=== PATIENT | female | born 2000 | race American Indian/Alaskan Native ===

== ENCOUNTER 2021-04-19 18:01 | Emergency (ER) | payer SELFPAY ==
[2021-04-19 18:53] VITALS: BP 134/87
--- NOTE | 2021-04-19 23:00 | Emergency Department Report ---
ED ENT HPI - General Chief complaint: Earache Stated complaint: PAIN/EYE/FACE/EAR INFECTION Time Seen by Provider: 04/19/21 21:14 Source: patient Mode of arrival: Ambulatory Limitations: No Limitations - History of Present Illness Initial comments: 20-year-old female with multiple complaining of right ear pain for 1 week started of unknown etiology she tried to treat it with peroxide and all of oil but no improvement in her symptoms. Associated with occasional dizziness and ringing in the ear reports no fever, chills, sweats but no hemoptysis no he matemesis no hematochezia complaint: ear pain -: week(s) (1) - Related Data Previous Rx's Medication Instructions Recorded Last Taken Type Cefdinir 300 mg PO BID #14 cap 04/19/21 Unknown Rx Ketorolac [Toradol] 10 mg PO Q6H PRN #10 04/19/21 Unknown Rx Neomy/Polymyx B/Hc Otic Susp 4 drops AD TID #1 bottle 04/19/21 Unknown Rx [Cortisporin (Otic) Susp] Allergies Allergy/AdvReac Type Severity Reaction Status Date / Time No Known Allergies Allergy Verified 04/19/21 18:46 ED Dental HPI - General Chief complaint: Earache Stated complaint: PAIN/EYE/FACE/EAR INFECTION Time Seen by Provider: 04/19/21 21:14 Source: patient Mode of arrival: Ambulatory Limitations: No Limitations - Related Data Previous Rx's Medication Instructions Recorded Last Taken Type Cefdinir 300 mg PO BID #14 cap 04/19/21 Unknown Rx Ketorolac [Toradol] 10 mg PO Q6H PRN #10 04/19/21 Unknown Rx Neomy/Polymyx B/Hc Otic Susp 4 drops AD TID #1 bottle 04/19/21 Unknown Rx [Cortisporin (Otic) Susp] Allergies Allergy/AdvReac Type Severity Reaction Status Date / Time No Known Allergies Allergy Verified 04/19/21 18:46 ED Review of Systems ROS: Stated complaint: PAIN/EYE/FACE/EAR INFECTION Other details as noted in HPI Comment: All other systems reviewed and negative ED Past Medical Hx - Past Medical History Previous Medical History?: Yes Additional medical history: Seasonal Allergies- Claritin - Surgical History Past Surgical History?: No - Social History Smoking Status: Never Smoker - Medications Home Medications: Home Medications Medication Instructions Recorded Confirmed Last Taken Type Cefdinir 300 mg PO BID #14 cap 04/19/21 Unknown Rx Ketorolac [Toradol] 10 mg PO Q6H PRN #10 04/19/21 Unknown Rx Neomy/Polymyx B/Hc Otic Susp 4 drops AD TID #1 bottle 04/19/21 Unknown Rx [Cortisporin (Otic) Susp] ED Physical Exam - General Limitations: No Limitations General appearance: alert, in no apparent distress - Head Head exam: Present: atraumatic, normocephalic - Eye Eye exam: Present: normal appearance, PERRL, EOMI, other (Redness to the left lower eyelid with scant mucus production). Absent: nystagmus Pupils: Present: normal accommodation - ENT ENT exam: Present: normal exam, mucous membranes moist - Neck Neck exam: Present: normal inspection - Respiratory Respiratory exam: Present: normal lung sounds bilaterally. Absent: respiratory distress - Cardiovascular Cardiovascular Exam: Present: regular rate, normal rhythm. Absent: systolic murmur, diastolic murmur, rubs, gallop - GI/Abdominal GI/Abdominal exam: Present: soft, normal bowel sounds - Extremities Exam Extremities exam: Present: normal inspection - Back Exam Back exam: Present: normal inspection - Neurological Exam Neurological exam: Present: alert, oriented X3 - Psychiatric Psychiatric exam: Present: normal affect, normal mood - Skin Skin exam: Present: warm, dry, intact, normal color. Absent: rash ED Course Vital Signs 04/19/21 18:49 Temperature 99.1 F Pulse Rate 100 H Respiratory 18 Rate Blood Pressure 134/87 Blood Pressure 134/87 [Right] O2 Sat by Pulse 100 Oximetry Critical care attestation.: If time is entered above; I have spent that time in minutes in the direct care of this critically ill patient, excluding procedure time. ED Disposition Clinical Impression: Otitis media, Blepharitis of eyelid of left eye Disposition: 01 HOME / SELF CARE / HOMELESS Is pt being admited?: No Does the pt Need Aspirin: No Condition: Stable Instructions: Ear Drops, Adult, Blepharitis, Otitis Media, Adult Prescriptions: Cefdinir 300 mg PO BID #14 cap Neomy/Polymyx B/Hc Otic Susp [Cortisporin (Otic) Susp] 4 drops AD TID #1 bottle Ketorolac [Toradol] 10 mg PO Q6H PRN #10 PRN Reason: Pain Referrals: [facility] [Provider Group] - 3-5 Days ASH BRYAN MD [Referring] - 3-5 Days
== END 2021-04-19 23:55 | disposition home or self-care (01) ==
LOC: ED 18:01
DX: H66.90 Otitis media, unspecified, unspecified ear (principal); H01.006 Unspecified blepharitis left eye, unspecified eyelid
CPT/HCPCS: 99282